=== PATIENT | male | born 1985 | race Caucasian/White ===

== ENCOUNTER 2023-09-27 23:54 | Emergency (ER) | payer SELFPAY ==
[~2023-09-27] VITALS: Ht 190.5 cm; Wt 122.5 kg
[2023-09-28 00:03] VITALS: BP 140/80; PULSE 98; RESP 16; TEMP 97; O2SAT 99
[2023-09-28 00:12] VITALS: O2SAT 99
== END 2023-09-28 00:40 ==
LOC: MED 09-28
DX: S83.8X2A Sprain of other specified parts of left knee, initial encounter (principal); I10 Essential (primary) hypertension; Z88.2 Allergy status to sulfonamides; Z88.8 Allergy status to other drugs, medicaments and biological substances; Z79.899 Other long term (current) drug therapy; W17.89XA Other fall from one level to another, initial encounter; Y93.89 Activity, other specified; Y92.89 Other specified places as the place of occurrence of the external cause; Y99.8 Other external cause status
CPT/HCPCS: 73562; 99283